=== PATIENT | female | born 1980 | race Caucasian/White ===

== ENCOUNTER 2017-03-15 08:54 | Inpatient (IN) | payer BC, OTHER ==
[~2017-03-15] VITALS: Ht 167.6 cm; Wt 57.2 kg
[2017-03-15 11:28] VITALS: BP 126/80
--- NOTE | 2017-03-15 11:28 | NUR ---
PRE-ADMISSION Pt is a 37 yr old female, AA%Ox4. Pt is presenting herself to [facility] for alcohol use. Pt is cooperative with assessment and states of mild anxiety. No sweats observed. No tremors seen or felt. VS are WNL BP 126/80, P 81, T 97.6, R 16, O2 100%. Pt was seen and examined by Dr. Melendrez. Pt will be admitted onto the 3rd floor. Will continue to monitor.
[2017-03-15] MEDS ORDERED: diphenhydrAMINE 50 MG CAPSULE PO PRN (11:30)
[2017-03-15] MEDS ORDERED: NICOTINE POLACRILEX 4 MG GUM-PK OF TEN BC PRN (11:30)
[2017-03-15] MEDS ORDERED: ONDANSETRON ODT 4 MG TAB.RAPDIS SL PRN (11:30)
[2017-03-15] MEDS ORDERED: ONDANSETRON 4 MG/2 ML VIAL IM PRN (11:30)
[2017-03-15] MEDS ORDERED: IBUPROFEN 400 MG TABLET PO PRN (11:30)
[2017-03-15] MEDS ORDERED: CLONIDINE HCL 0.1 MG TABLET PO PRN (11:30)
[2017-03-15] MEDS ORDERED: LORAZEPAM 2 MG/1 ML VIAL IM PRN (11:30)
[2017-03-15] MEDS ORDERED: MIRALAX 17 GM POWD.PACK PO PRN (11:30)
[2017-03-15] MEDS ORDERED: LOPERAMIDE HCL 2 MG CAPSULE PO PRN ×2 (11:30)
[2017-03-15] MEDS ORDERED: ACETAMINOPHEN 325 MG TABLET PO PRN (11:30)
[2017-03-15] MEDS ORDERED: MAG HYDROX/AL HYDROX/SIMETH 30 ML LIQUID UDC PO PRN (11:30)
[2017-03-15] MEDS ORDERED: LORAZEPAM 1 MG TABLET PO PRN ×2 (11:30)
[2017-03-15 11:35] LABS: *URINE HCG, QUAL NEGATIVE (NEGATIVE)
[2017-03-15] MEDS ORDERED: THIAMINE HCL 200 MG/2 ML VIAL IM ONE (11:46)
[2017-03-15 11:58] LABS: *AMPHETAMINE, URINE NEGATIVE (NEGATIVE); *BARBITURATE, URINE NEGATIVE (NEGATIVE); *CANNABINOID, URINE NEGATIVE (NEGATIVE); *COCCAINE, URINE NEGATIVE (NEGATIVE); *OPIATE, URINE NEGATIVE (NEGATIVE); *PHENCYCLIDINE SCREEN,URINE NEGATIVE (NEGATIVE)
[2017-03-15 12:00] VITALS: BP 125/87
--- NOTE | 2017-03-15 12:10 | NUR ---
ADMISSION NOTE Pt is a 37 yr old female, AA&Ox4. Pt is presenting herself to [facility] for ETOH Dependence. Pt states of having mild anxiety but is able to cope with anxiety level. Body check was complete. Skin is intact, warm and dry to touch. No tremors seen or felt. No facial sweats noted. Pt denies any n/v or pain. Pupils are brisk and reactive to light. Pt is full code, regular diet and allergies to Clindamycin, pt states she gets hives with medication. Pt states of having a seizure x1 2 years ago. Pt denies any PMH. Pt states of having a PCP but cannot recall name. Pt did not bring any home medications. CIWA score upon admission is 2. Pt is cooperative with assessment. Substance use: ETOH: Pt states she first started drinking since the age of 10 yrs old but it became a problem 10 years ago. Pt states she drinks 20 oz of vodka daily for 10 years. Last drink was on 03/14/17 at 2200, pt states she drank 10 shots of vodka. Pt states this is her first time in treatment. Pt was seen and examined by Dr. Melendrez in intake. Pt is to start on 5 day Ativan taper today on 03/15/17 as ordered. Pt was educated on medication regimen and was able to verbalize understanding. Pt is on fall and seizure precautions. Bed kept in low positions and locked with side rail up and padded x2. Call light is within reach. Pt was oriented around unit and equipment in room. All needs attended and met. Will continue to monitor.
[2017-03-15 12:11] LABS: BASOPHILS % (AUTO) 0.8 % (0.0-2.0); EOSINOPHILS # (AUTO) 0.1 K/uL (0.0-0.7); HEMOGLOBIN 13.3 G/DL (12.0-16.0); MEAN CORPUSCULAR VOLUME 96.5 FL (81.0-99.0); NEUTROPHILS # (AUTO) 2.5 K/UL (1.8-8.9)
[2017-03-15 12:13] LABS: EOSINOPHILS % (AUTO) 1.5 % (0.0-7.0); HEMATOCRIT 39.3 % (37-47); LYMPHOCYTES # (AUTO) 1.1 K/UL (0.8-4.8); LYMPHOCYTES % (AUTO) 27.2 % (20.5-51.5); MEAN CORPUSCULAR HEMOGLOBIN 32.6 UUG (27.0-31.0); MEAN CORPUSCULAR HGB CONC 34 g/dL (32.0-37.0); MONOCYTES # (AUTO) 0.4 K/UL (0.1-1.30); NEUTROPHILS % (AUTO) 59.5 % (38.5-71.5); PLATELET COUNT (AUTO) 269 K/UL (150-450); RED BLOOD CELL COUNT(AUTO) 4.07 MIL/UL (4.2-5.4); WHITE BLOOD COUNT (AUTO) 4.1 K/UL (4.0-11.2)
[2017-03-15 12:15] LABS: ETHANOL < 3 MG/DL (0-0)
[2017-03-15 12:18] LABS: ALANINE AMINOTRANSFERASE 53 U/L (14-59); ALKALINE PHOSPHATASE 66 U/L (50-136); AMYLASE 72 U/L (25-115); ASPARTATE AMINOTRANSFERASE 77 U/L (15-37); BILIRUBIN,TOTAL 0.3 mg/dL (0.2-1.0); CARBON DIOXIDE 28 mmol/L (21-32); CHLORIDE 96 mmol/L (98-107); CREATININE 0.6 mg/dL (0.6-1.3); GLUCOSE 115 mg/dL (74-106); MAGNESIUM 1.9 mg/dL (1.8-2.4); POTASSIUM 4.5 mmol/L (3.5-5.1); UREA NITROGEN, BLOOD 13 mg/dL (7-18)
[2017-03-15] MEDS: LORAZEPAM 1 MG TABLET PO SCH ×3 (13:05→21:48)
[2017-03-15 16:00] VITALS: BP 135/89
--- NOTE | 2017-03-15 19:05 | NUR ---
END OF SHIFT Pt is a 37 yr old female, AA&Ox4. Pt is a newly admitted pt to [facility] for ETOH Dependence and start on 5 day Ativan taper today on 03/15/17. Pt has been cooperative with medication regimen and plan of care. No PRN's were given during the day. Pt c/o mild anxiety but is able to cope with anxiety leve. Last CIWA score was 1 at 1600. Skin is intact, warm and dry to touch. Encouraged increase fluid intake. Pt is on fall and seizure precautions. Call light is within reach.
--- NOTE | 2017-03-15 19:30 | NUR ---
START OF SHIFT Pt is a 37 yr old female admitted for ETOH Dependence. Pt is A/O X 4. Pt is on full code, regular diet and allergic to Clindamycin. Pt has history of having a seizure x1, 2 years ago. Pt denies any PMH. Last CIWA =1.Pt has been started on 5 day Ativan taper and is tolerating well.No c/o pain or s/s of acute distress noted at this time.All safety measures in place per hospital policy with call robertson within reach;will continue to monitor.
[2017-03-15 20:00] VITALS: BP 149/107
[2017-03-15 20:30] VITALS: BP 138/90
[2017-03-16] VITALS: BP 143/95
--- NOTE | 2017-03-16 00:04 | NUR ---
CLONIDINE 0.1 MG PO GIVEN ORDERED FOR B/P OF 143/95.WILL MONITOR FOR EFFECTIVENESS.
--- NOTE | 2017-03-16 01:04 | NUR ---
PRN F/U B/P=136/88.
[2017-03-16 04:00] VITALS: BP 138/88
--- NOTE | 2017-03-16 07:04 | NUR ---
END OF SHIFT Pt is a 37 yr old female admitted for ETOH Dependence. Pt is A/O X 4. Pt is on full code, regular diet and allergic to Clindamycin. Pt has history of having a seizure x1, 2 years ago. Pt denies any PMH. Last CIWA =1.Pt has been started on 5 day Ativan taper and is tolerating well.No c/o pain or s/s of acute distress noted;Pt slept 6 hrs,fluid intake was 1750 mls,voided x 3,b/m x 1.All safety measures in place per hospital policy with call robertson within reach;will continue to monitor.
[2017-03-16 07:07] LABS: HEPATITIS B SURFACE AG Negative (Negative)
--- NOTE | 2017-03-16 07:49 | NUR ---
START OF SHIFT NOTE Received report from night nurse,37 year old female admitted for ETOH Dependence. Pt has history of having a seizure x1, 2 years ago. Patient cont on 5 days Ativan taper. Per endorsement pt was given PRN Clonidine effective per night nurse. Patient slept for 6 hours, Last CIWA was-1. Patient received awake,alert and oriented x4, Educated patient regarding plan of care for the day and medication regimen with good verbal understanding. Safety measures in place. call light with in reach, will continue to monitor.
[2017-03-16 08:00] VITALS: BP 104/65
[2017-03-16] MEDS: THIAMINE HCL 100 MG TABLET PO SCH (08:51)
[2017-03-16] MEDS: FOLIC ACID 1 MG TABLET PO SCH (08:51)
[2017-03-16] MEDS: MULTIVITAMINS,THERAPEUTIC TABLET PO SCH (08:51)
[2017-03-16] MEDS: LORAZEPAM 1 MG TABLET PO SCH ×3 (08:51→21:31)
[2017-03-16] MEDS ORDERED: TUBERCULIN,PURIF.PROT.DERIV. 5 TU/0.1 ML TEST ID ONE (09:00)
[2017-03-16] MEDS ORDERED: TRAZODONE 50 MG TABLET PO PRN (09:45)
[2017-03-16 12:00] VITALS: BP 102/62
[2017-03-16 16:00] VITALS: BP 134/85
--- NOTE | 2017-03-16 19:17 | NUR ---
END OF SHIFT NOTE Patient admitted for ETOH dependence. Patient cont on 5 days Ativan taper tolerating well. Pt compliant with medication and plan of care. Encouraged Po fluids as tolerated. Pt's last CIWA score was 7 at 1600. Vital signs WNL. Skin intact warm and dry to touch. Patient attended groups and activities. Skin intact warm and dry to touch. All needs met. Safety measures in place, call light within reach. Pt endorsed to night nurse in stable condition.
--- NOTE | 2017-03-16 19:30 | NUR ---
START OF SHIFT Pt is a 37 yr old female admitted for ETOH Dependence. Pt is A/O X 4. Pt is on full code, regular diet and allergic to Clindamycin. Pt has history of having a seizure x1, 2 years ago. Pt denies any PMH. Last CIWA =7.Pt continues on 5 day Ativan taper and is tolerating well.No c/o pain or s/s of acute distress noted at this time.Pt received in a stable condition.All needs met;all safety measures in place per hospital policy with call robertson within reach;will continue to monitor.
[2017-03-16 20:00] VITALS: BP 138/90
--- NOTE | 2017-03-17 | NUR ---
PT REFUSED V/S. Addendum: 03/17/17 at 0146 by GLADYS OLEA RN Amended: Links added.
[2017-03-17 04:00] VITALS: BP 96/56
--- NOTE | 2017-03-17 04:00 | NUR ---
PT REFUSED V/S / CIWA DEFERRED. PT NOTED TO BE IN DEEP SLEEP,REFUSED V/S.CIWA DEFERRED D/T SLEEP.BREATHING IS EVEN AND NON LABORED,NO S/S OF DISTRESS NOTED.WILL CONTINUE TO MONITOR. Addendum: 03/17/17 at 0525 by GLADYS OLEA RN CHARTING DONE BY ERROR.V/S AND CIWA WERE DONE.
--- NOTE | 2017-03-17 06:49 | NUR ---
END OF SHIFT Pt is a 37 yr old female admitted for ETOH Dependence. Pt is A/O X 4. Pt is on full code, regular diet and allergic to Clindamycin. Pt has history of having a seizure x1, 2 years ago. Pt denies any PMH. Last CIWA =2.Pt continues on 5 day Ativan taper and is tolerating well.No c/o pain or s/s of acute distress noted at this time.Pt is in a stable condition.No PRN meds given this shift;pt slept 7 hrs;fluid intake was 1480 mls;voided x 2.All needs met;all safety measures in place per hospital policy with call robertson within reach;will continue to monitor.
--- NOTE | 2017-03-17 07:43 | NUR ---
BEGINNING OF SHIFT Patient endorsement received from overnight associate nurse, all pertinent information. Patient is a 37 year old female admitted on 03/15/2017. Patient with admitting dx: etoh dependence. patient currently on 5 day ativan taper as ordered. patients skin is intact, per overnight associate patient slept for: 7 hours. Patient with last ciwa score of: 2. Patient received awake, alert and oriented x4, educated regarding plan of care for the day and medication regimen with good verbal understanding. safety measures in place. call light kept with in reach, will continue to monitor.
[2017-03-17 08:03] VITALS: BP 97/62
[2017-03-17] MEDS: LORAZEPAM 1 MG TABLET PO SCH ×2 (08:29→12:19)
[2017-03-17] MEDS: MULTIVITAMINS,THERAPEUTIC TABLET PO SCH (08:29)
[2017-03-17] MEDS: THIAMINE HCL 100 MG TABLET PO SCH (08:29)
[2017-03-17] MEDS: FOLIC ACID 1 MG TABLET PO SCH (08:29)
[2017-03-17 12:19] VITALS: BP 125/89
--- NOTE | 2017-03-17 14:34 | NUR ---
Prompted to go to group today and not isolate.
[2017-03-17] MEDS ORDERED: LORAZEPAM 1 MG TABLET PO SCH ×2 (17:00→21:00)
[2017-03-17 17:30] VITALS: BP 98/64
--- NOTE | 2017-03-17 19:14 | NUR ---
START OF SHIFT NOTE: Patient is a 37 year old female admitted to [facility] on 03/15/2017 for Alcohol. dependence. Patient continue 5 Day Ativan Taper. Patient is tolerating well without ASE. Patient remains compliant with treatment, medications, and diet regime. Patient reports Allergy to Clindamycin, is on Full Code, Regular Diet, Fall and Seizures Precautions. PMH: History of Seizures x2 in 2014. Patient reports Substance use History: "ETOH/Alcohol: 20 oz of Vodka every day since 2006. Last used 10 shots of Vodka on 03/14/2017 at 2200". Patient is on first time for detox Tx. Upon endorsement patient is in her room alert and oriented x4 with stable gait. Speech is soft and clear. Patient denies SI/HI. CIWA 5. VSWNL. Respirations unlabored and even. Lungs Sounds are clear thoroughly. Abdomen is soft, non-tender. Bowels Sounds presents in all x4 quadrants. Skin is intact, warm, and dry. Encouraged to fluids intake as tolerated. Encouraged to attending groups activities. All needs met. Safety measures in place: Call light within reach, bed locked, and in lowest position, padded bed rails up bilaterally. Patient endorsed by day shift nurse, report received.
--- NOTE | 2017-03-17 19:14 | NUR ---
END OF SHIFT Patient alert and oriented x4, compliant with therapeutic plan of care. patient admitted today during morning. patient was started on an Ativan taper as ordered, medication administered as ordered, well tolerated, no ASE noted, last ciwa score of: 5, safety measures in place. denies SI/HI. patient encouraged adequate PO Fluid intake as tolerated. VS WNL. Patient endorsed to inclusion teacher nurse, all pertinent information discussed. Addendum: 03/18/17 at 1607 by LEYLA SIFUENTES LVN NOTED ABOVE IS INCORRECT, WRONG PATIENT.
[2017-03-17 20:00] VITALS: BP 140/100
[2017-03-18] VITALS: BP 103/66
[2017-03-18 04:00] VITALS: BP 95/61
--- NOTE | 2017-03-18 06:55 | NUR ---
END OF SHIFT NOTE: Patient is a 37 year old female admitted to [facility] on 03/15/2017 for Alcohol dependence. Patient continue 5 Day Ativan Taper. Patient is tolerating well without ASE. Patient remains compliant with treatment, medications, and diet regime. Patient reports Allergy to Clindamycin, is on Full Code, Regular Diet, Fall and Seizures Precautions. PMH: History of Seizures x2 in 2014. Patient reports Substance use History: "ETOH/Alcohol: 20 oz of Vodka every day since 2006. Last used 10 shots of Vodka on 03/14/2017 at 2200". Patient is on first time for detox Tx. Upon endorsement patient is in her room alert and oriented x4 with stable gait. Speech is soft and clear. Patient denies SI/HI. Last CIWA 3 @0400. COWS/CIWA taken when patient's awake during night. Last VS @0400: T: 97.0, BP: 95/61, HR: 69, RR:16, RA O2Sat: 98%, pain level: "0/10". Patient denies SI/HI. Respirations unlabored and even. Skin is intact, warm and dry to touch. No PRN Medications administrated during warehouse supervisor 3rd shift. Patient slept 8 hours, intake 1,000 ml, voided x2. Encouraged fluids intake as tolerated. Encouraged to attend groups activities. All needs met. Safety measures on place. Call light within reach, bed in lowest position and locked, padded rails up bilaterally. Patient endorsed to day shift nurse. Report given.
--- NOTE | 2017-03-18 08:02 | NUR ---
BEGINNING OF SHIFT Patient endorsement received from shift supervisor rn nurse, all pertinent information. Patient is a 37 year old female admitted on 03/15/2017. Patient with admitting dx: etoh dependence. patient currently on 5 day ativan taper as ordered. patients skin is intact, per shift supervisor rn patient slept for: 8 hours. Patient with last ciwa score of: 3. Patient received awake, alert and oriented x4, educated regarding plan of care for the day and medication regimen with good verbal understanding. safety measures in place. call light kept with in reach, will continue to monitor.
[2017-03-18 08:17] VITALS: BP 100/77
[2017-03-18] MEDS: MULTIVITAMINS,THERAPEUTIC TABLET PO SCH (08:54)
[2017-03-18] MEDS: THIAMINE HCL 100 MG TABLET PO SCH (08:55)
[2017-03-18] MEDS: FOLIC ACID 1 MG TABLET PO SCH (08:55)
[2017-03-18] MEDS ORDERED: LORAZEPAM 1 MG TABLET PO SCH ×2 (09:00)
[2017-03-18 13:00] VITALS: BP 137/82
[2017-03-18 17:51] VITALS: BP 146/83
--- NOTE | 2017-03-18 19:03 | NUR ---
END OF SHIFT Patient alert and oriented x4, compliant with therapeutic plan of care. patient with admitting Dx: etoh dependence. Patient completed Ativan taper as ordered, well tolerated, no ASE noted. Patient is scheduled to be discharged tomorrow morning, noted self motivated towards sobriety. 0900 assessment patient presented with; tremors that can be felt but not seen, barely sweating and anxiety with ciwa score of: 5; 1300 assessment patient presented with: tremors tremors that can be felt but not seen, and mild anxiety with ciwa score of: 2; 1700 assessment patient presented with: mild anxiety and tremors that can be felt but not seen, and ciwa score of:2. Patient was encouraged adequate PO fluid intake as tolerated. Encouraged to attend group therapies/sessions to learn new coping skills to prevent relapse, noted attending and participating. denies any SI/HI. Patients safety measures in place. Call light kept with in reach. Endorsed to night order selector nurse, all pertinent information discussed. Will continue to monitor.
--- NOTE | 2017-03-18 19:03 | NUR ---
START OF SHIFT NOTE: Patient is a 37 year old female admitted to [facility] on 03/15/2017 for Alcohol. Dependence, completed 5 Day Ativan Taper. Patient's tolerated well without ASE. Patient remains compliant with treatment, medications, and diet regime. Patient reports Allergy to Clindamycin, is on Full Code, Regular Diet, Fall and Seizures Precautions. PMH: History of Seizures x2 in 2014. Substance Use History: "ETOH/Alcohol: 20 oz of Vodka every day since 2006. Last used 10 shots of Vodka on 03/14/2017 at 2200". Patient is on first time for Detox. Upon endorsement patient is in her room alert and oriented x4 with stable gait. Speech is soft and clear. Patient denies SI/HI. CIWA 3. VS: T: 98.5, HR: 79, BP:134/90, RA O2SAT:100%, RR:19, pain level: 0/10". Respirations unlabored and even. Lungs Sounds are clear thoroughly. Abdomen is soft, non-tender. Bowels Sounds presents in all x4 quadrants. Skin is intact, warm, and dry. Encouraged to fluids intake as tolerated. Encouraged to attending groups activities. Patient scheduled for discharging tomorrow. All needs met. Safety measures in place: Call light within reach, bed locked, and in lowest position, with padded bed rails up bilaterally. Patient endorsed by day shift nurse, report received.
[2017-03-18 20:00] VITALS: BP 134/90
[2017-03-18] MEDS ORDERED: TRAZ-144 PO (20:12)
[2017-03-18] MEDS ORDERED: NICO4GUM38 BC (20:12)
[2017-03-18] MEDS ORDERED: HYDR25CA PO (20:17)
--- NOTE | 2017-03-18 23:05 | NUR ---
PRN TRAZODONE 50 MG 1 TAB PO Patient c/o insomnia. PRN Trazodone 50 mg 1 tab. PO administrated with full glass of water as ordered. Patient tolerated well. All needs met. Safety measures on place. Call light within reach, bed in lowest position and locked, padded rails up bilaterally rails up bilaterally. Will continue to monitor closely.
--- NOTE | 2017-03-19 00:05 | NUR ---
RE-ASSESSMENT Patient is sleeping. Respirations even and unlabored. RR:15. PRN Trazodone 50 mg 1 tab. PO administrated for insomnia @2305 was effective. All needs met. Safety measures on place. Call light within reach, bed in lowest position and locked, padded rails up bilaterally rails up bilaterally. Will continue to monitor closely.
[2017-03-19 00:50] VITALS: BP 90/55
[2017-03-19 04:00] VITALS: BP 106/66
--- NOTE | 2017-03-19 07:01 | NUR ---
END OF SHIFT NOTE: Patient is a 37 year old female admitted to [facility] on 03/15/2017 for Alcohol dependence. Patient continue 5 Day Ativan Taper. Patient is tolerating well without ASE. Patient remains compliant with treatment, medications, and diet regime. Patient reports Allergy to Clindamycin, is on Full Code, Regular Diet, Fall and Seizures Precautions. PMH: History of Seizures x2 in 2014. Patient reports Substance use History: "ETOH/Alcohol: 20 oz of Vodka every day since 2006. Last used 10 shots of Vodka on 03/14/2017 at 2200". Patient is on first time for detox Tx. Upon endorsement patient is in her room alert and oriented x4 with stable gait. Speech is soft and clear. Patient denies SI/HI. Last CIWA 4 @0400. COWS/CIWA taken when patient's awake during night. Last VS @0400: T: 98.7, BP: 106/66, HR: 78, RR:16, RA O2Sat: 100%, pain level: "0/10". Patient denies SI/HI. Respirations unlabored and even. Skin is intact, warm and dry to touch. PRN Trazodone 50 mg 1 tab. PO administrated @2305 for insomnia, and was effective. Patient slept 6 hours, intake 1,100 ml, voided x3, stool x1. Patient scheduled for discharging today,03/19/2017 @0930. Encouraged fluids intake as tolerated. Encouraged to attend groups activities. All needs met. Safety measures on place. Call light within reach, bed in lowest position and locked, padded rails up bilaterally. Patient endorsed to day shift nurse. Report given.
--- NOTE | 2017-03-19 07:40 | NUR ---
D/C NOTE Pt is A/O x4. V/S remain WNL. Pt denies SI/HI or hallucinations. Pt shows no s/s of acute withdrawal at this time, and is stable. has medically cleared pt for d/c . Education on Hepatitis C, smoking cessation and medication side effects provided. Pt verbalizes understanding. All pt belongings are in belonging bag, including prescriptions, pt did not have any home medications. Refuses FLU/PNU vaccination. Pt is being accompanied by FLOOR COVERINGS SALESPERSON at this time to be transported to rehab. All needs met. Addendum: 03/19/17 at 0953 by SEBASTIÁN TRIPLETT RN [id number]
--- NOTE | 2017-03-19 07:56 | NUR ---
START OF SHIFT Received report from night nurse. Pt admitted on 03/15/17 for ETOH withdrawals. Pt has completed 5 day Ativan taper and is medically cleared for discharge. Pt is aware and states she is ready. V/S remain WNL throughout night. No acute s/s of withdrawals. most recent CIWA is 1. PRN Trazodone administered and effective, pt slept for 6 hours. All needs met at this time, will continue to monitor.
[2017-03-19 08:03] VITALS: BP 106/70
[2017-03-19] MEDS: MULTIVITAMINS,THERAPEUTIC TABLET PO SCH (08:40)
[2017-03-19] MEDS: FOLIC ACID 1 MG TABLET PO SCH (08:40)
[2017-03-19] MEDS: THIAMINE HCL 100 MG TABLET PO SCH (08:40)
[2017-03-19] MEDS ORDERED: LORAZEPAM 1 MG TABLET PO SCH ×2 (09:00)
[2017-03-20] MEDS ORDERED: LORAZEPAM 1 MG TABLET PO SCH (09:00)
[2017-03-21] MEDS ORDERED: LORAZEPAM 1 MG TABLET PO SCH (09:00)
== END 2017-03-19 09:40 | disposition home or self-care (01) | DRG 895 ==
LOC: SRC 10:31
PROVIDERS: ADMIT Internal Medicine; ATTEND Internal Medicine
PROC: HZ2ZZZZ Detoxification Services for Substance Abuse Treatment (ICD-10-PCS; principal; 2017-03-15)
PROC: HZ41ZZZ Group Counseling for Substance Abuse Treatment, Behavioral (ICD-10-PCS; principal; 2017-03-15)
DX: F10.230 Alcohol dependence with withdrawal, uncomplicated (principal); E87.8 Other disorders of electrolyte and fluid balance, not elsewhere classified; I15.9 Secondary hypertension, unspecified; E87.1 Hypo-osmolality and hyponatremia; K70.10 Alcoholic hepatitis without ascites; F13.90 Sedative, hypnotic, or anxiolytic use, unspecified, uncomplicated; Y90.0 Blood alcohol level of less than 20 mg/100 ml; E86.1 Hypovolemia; Z81.1 Family history of alcohol abuse and dependence; F17.210 Nicotine dependence, cigarettes, uncomplicated; Z86.69 Personal history of other diseases of the nervous system and sense organs; F32.9 Major depressive disorder, single episode, unspecified; R73.9 Hyperglycemia, unspecified; F41.9 Anxiety disorder, unspecified
CPT/HCPCS: 36415; 70030-TC; 80307; 83735; 84703; 85025; 86580; 86592; 86705; 86803; 87340; 87806; A4663; G0480; J3411